=== PATIENT | male | born 1975 | race Caucasian/White ===

== ENCOUNTER 2023-01-10 17:28 | Emergency (ER) | payer BC, SELFPAY ==
[2023-01-10 17:40] VITALS: BP 112/86; PULSE 76; RESP 18; TEMP 37; O2SAT 98; BMI 35.6
--- NOTE | 2023-01-10 18:00 | EXP.UTC ---
Discharge Plan Disposition Patient Disposition: Home, Self-Care Condition: Good Prescriptions Prescriptions: New methylprednisolone [Medrol (Guido)] 4 mg tablets,dose pack See Rx Instructions .Route .COMPLEX 6 Days Qty: 21 0RF Rx Instructions: taper pack; amoxicillin-pot clavulanate 875-125 mg Tablet 1 tab PO Q12H Qty: 20 0RF No Action lisinopril 20 mg tablet 20 mg PO DAILY Label Comments: TAKE 1 TABLET BY MOUTH EVERY DAY Aimovig Autoinjector 70 mg/mL auto-injector 70 mg SQ MONTHLY Label Comments: SUBCUTANEOUS (INJECT UNDER THE SKIN) 70 MG EVERY 30 DAYS. Nurtec ODT 75 mg tablet,disintegrating 75 mg PO DAILY Label Comments: TAKE 1 TABLET BY MOUTH DAILY NEEDED (MIGRAINE). Referrals Follow up/Referrals: Provider,Referral, MD [Primary Care Provider] - See instructions Activity Restrictions/Add. Instructions Additional Instructions/Restrictions: Take medication as prescribed Follow up with your Family Doctor if no improvement or any worsening of symptoms Return if needed Warm drinks like Tea may help with scratchy throat Clinical Impressions Clinical Impression: Otitis media Qualifiers: Otitis media type: unspecified Laterality: right Qualified Code(s): H66.91 - Otitis media, unspecified, right ear Instructions Patient Instructions: Middle Ear Infection, DI for Sinusitis Discharge ED Provider: Katarina Wallace [facility] General Stated complaint: congestion, sore throat, cough Mode of Arrival: Ambulatory Source of Information: Patient and Spouse Limitations: No Limitations Time Seen by Provider: 01/10/23 18:00 Description of Symptoms (Recalled from Triage Doc. by RN): PATIENT C/O SINUS PRESSURE AND DRAINAGE X 4 DAYS HEENT Symptoms (Recalled from RN notes): Yes Resp Symptoms (Recalled from RN notes): No Skin Symptoms (Recalled from RN notes): No MS Symptoms (Recalled from RN notes): No Functional Status (Recalled from RN notes): WNL History of Present Illness Provider Complaint: Patient states that he has been having sinus pain and pressure along with pain in his right ear for about 4 days States that today he was feeling worse so he came in to get checked States that the pressure behind his eyes was 'making his head hurt Related Data Home Medications Medication Instructions Recorded Confirmed erenumab-aooe 70 mg/mL 70 mg SQ MONTHLY Headache 01/10/23 01/10/23 subcutaneous auto-injector (Aimovig Autoinjector) lisinopril 20 mg tablet 20 mg PO DAILY Hypertension 01/10/23 01/10/23 rimegepant 75 mg disintegrating 75 mg PO DAILY Headache 01/10/23 01/10/23 tablet (Nurtec ODT) Previous Rx's Medication Instructions Recorded amoxicillin 875 mg-potassium 1 tab PO Q12H #20 tabs 01/10/23 clavulanate 125 mg tablet methylprednisolone 4 mg tablets in See Rx Instructions .Route 01/10/23 a dose pack (Medrol (Guido)) .COMPLEX 6 days #21 tabs Allergies Allergy/AdvReac Type Severity Reaction Status Date / Time No Known Allergies Allergy Verified 01/10/23 17:54 Worker's Comp Is this a Worker's Comp case?: No [facility] Disclaimer: The information contained in this section may have been updated after the patient was seen, as this information can be updated by other users. Medical History (Updated 01/10/23 @ 18:17 by Katarina Wallace APRN) Hypertension Migraine Social History Smoking Status: Unknown if ever smoked alcohol intake: never current occupational status: employed Travel in the last 8 weeks: None ROS Obtained: Yes All systems reviewed & no additional complaints except as documented and Yes Systems reviewed as appropriate & no additional complaints except as documented ENT Ears, Nose, Mouth, and Throat: Reports system reviewed and no additional complaints, except as documented, Reports as per HPI, Reports otalgia, Reports sinus pain and Reports sinus pressure Cardiovascular Cardiovascular: Reports system reviewed a
[2023-01-10 18:18] VITALS: BP 112/86; PULSE 76; RESP 18; TEMP 37; O2SAT 98
== END 2023-01-10 18:21 | disposition home or self-care (01) ==
PROVIDERS: Emergency Provider Nurse Practitioner
DX: H66.91 Otitis media, unspecified, right ear (principal); J01.90 Acute sinusitis, unspecified; I10 Essential (primary) hypertension
CPT/HCPCS: 99204; 99212; G0463

== ENCOUNTER 2023-02-11 16:29 | Emergency (ER) | payer BC, SELFPAY ==
[2023-02-11 16:35] VITALS: BP 136/78; PULSE 76; RESP 19; TEMP 36.8; O2SAT 98; BMI 34.0
--- NOTE | 2023-02-11 16:52 | EXP.UTC ---
Discharge Plan Disposition Patient Disposition: Home, Self-Care Condition: Good Prescriptions Prescriptions: New Debrox 6.5 % drops 5 drp otic (ear) DAILY 5 Days Qty: 15 0RF No Action lisinopril 20 mg tablet 20 mg PO DAILY Patient Comments: TAKE 1 TABLET BY MOUTH EVERY DAY Aimovig Autoinjector 70 mg/mL auto-injector 70 mg SQ MONTHLY Patient Comments: SUBCUTANEOUS (INJECT UNDER THE SKIN) 70 MG EVERY 30 DAYS. Nurtec ODT 75 mg tablet,disintegrating 75 mg PO DAILY Patient Comments: TAKE 1 TABLET BY MOUTH DAILY NEEDED (MIGRAINE). methylprednisolone [Medrol (Guido)] 4 mg tablets,dose pack See Rx Instructions .Route .COMPLEX 6 Days Qty: 21 0RF Rx Instructions: taper pack; amoxicillin-pot clavulanate 875-125 mg Tablet 1 tab PO Q12H Qty: 20 0RF Referrals Follow up/Referrals: Provider,Referral, MD [Primary Care Provider] - See instructions Clinical Impressions Clinical Impression: Impacted cerumen of left ear Instructions Patient Instructions: Cerumen Impaction Discharge ED Provider: Esteban ([facility])[place] HPI General Stated complaint: left ear pain Mode of Arrival: Ambulatory Source of Information: Patient Limitations: No Limitations Time Seen by Provider: 02/11/23 16:52 Description of Symptoms (Recalled from Triage Doc. by RN): PATIENT C/O LEFT EAR PAIN SINCE YESTERDAY HEENT Symptoms (Recalled from RN notes): Yes Resp Symptoms (Recalled from RN notes): No Skin Symptoms (Recalled from RN notes): No MS Symptoms (Recalled from RN notes): No Functional Status (Recalled from RN notes): WNL History of Present Illness Provider Complaint: 47 yr old male presents for left ear pain since yesterday Related Data Home Medications Medication Instructions Recorded Confirmed erenumab-aooe 70 mg/mL 70 mg SQ MONTHLY Headache 01/10/23 01/10/23 subcutaneous auto-injector (Aimovig Autoinjector) lisinopril 20 mg tablet 20 mg PO DAILY Hypertension 01/10/23 01/10/23 rimegepant 75 mg disintegrating 75 mg PO DAILY Headache 01/10/23 01/10/23 tablet (Nurtec ODT) Previous Rx's Medication Instructions Recorded amoxicillin 875 mg-potassium 1 tab PO Q12H #20 tabs 01/10/23 clavulanate 125 mg tablet methylprednisolone 4 mg tablets in See Rx Instructions .Route 01/10/23 a dose pack (Medrol (Guido)) .COMPLEX 6 days #21 tabs carbamide peroxide 6.5 % ear drops 5 drp otic (ear) DAILY 5 days #15 02/11/23 (Debrox) mL Allergies Allergy/AdvReac Type Severity Reaction Status Date / Time No Known Allergies Allergy Verified 01/10/23 17:54 Worker's Comp Is this a Worker's Comp case?: No [facility] Disclaimer: The information contained in this section may have been updated after the patient was seen, as this information can be updated by other users. Medical History , [employer]) Hypertension Migraine Social History (Updated 01/10/23 @ 18:17 by Katarina Wallace, [employer]) Smoking Status: Unknown if ever smoked alcohol intake: never current occupational status: employed Travel in the last 8 weeks: None ROS Obtained: Yes All systems reviewed & no additional complaints except as documented Constitutional Constitutional: Reports system reviewed and no additional complaints, except as documented and Reports as per HPI Eyes Eyes: Reports system reviewed and no additional complaints, except as documented ENT Ears, Nose, Mouth, and Throat: Reports system reviewed and no additional complaints, except as documented, Reports as per HPI and Reports otalgia Cardiovascular Cardiovascular: Reports system reviewed and no additional complaints, except as documented Respiratory Respiratory: Reports system reviewed and no additional complaints, except as documented Musculoskeletal Musculoskeletal: Reports system reviewed and no additional complaints, except as documented Neurologic Neurologic: Reports system revi
[2023-02-11 17:18] VITALS: BP 136/78; PULSE 76; RESP 19; TEMP 36.8; O2SAT 98
== END 2023-02-11 17:20 | disposition home or self-care (01) ==
PROVIDERS: Emergency Provider Nurse Practitioner Family
DX: H61.22 Impacted cerumen, left ear (principal); I10 Essential (primary) hypertension; H92.02 Otalgia, left ear
CPT/HCPCS: 99212; 99213; G0463

== ENCOUNTER → 2023-02-20 15:54 | Outpatient (CLI) | payer BC, SELFPAY | PROVIDERS: PCP Student in an Organized Health Care Education/Training Program; Visit Provider Student in an Organized Health Care Education/Training Program | DX: N39.0 Urinary tract infection, site not specified (principal) | CPT/HCPCS: 87086 ==

== ENCOUNTER 2023-07-25 17:23 | Emergency (ER) | payer BC, SELFPAY ==
[2023-07-25 18:20] VITALS: BP 132/82; PULSE 124; RESP 18; TEMP 36.8; O2SAT 96; BMI 36.9
--- NOTE | 2023-07-25 19:12 | EXP.UTC ---
Discharge Plan Disposition Patient Disposition: Home, Self-Care Condition: Good Prescriptions Prescriptions: New loratadine 10 mg tablet 10 mg PO DAILY Qty: 30 0RF benzonatate 100 mg capsule 100 mg PO TID PRN (Reason: cough) Qty: 30 0RF No Action lisinopril 20 mg tablet 20 mg PO DAILY Patient Comments: TAKE 1 TABLET BY MOUTH EVERY DAY Aimovig Autoinjector 70 mg/mL auto-injector 70 mg SQ MONTHLY Patient Comments: SUBCUTANEOUS (INJECT UNDER THE SKIN) 70 MG EVERY 30 DAYS. Nurtec ODT 75 mg tablet,disintegrating 75 mg PO DAILY Patient Comments: TAKE 1 TABLET BY MOUTH DAILY NEEDED (MIGRAINE). montelukast 10 mg tablet 10 mg PO DAILY Patient Comments: TAKE 1 TABLET BY MOUTH EVERY DAY AT NIGHT albuterol sulfate 90 mcg/actuation HFA aerosol inhaler See Rx Instructions .ROUTE .COMPLEX Patient Comments: INHALE 2 PUFFS BY MOUTH EVERY 4 HOURS NEEDED FOR WHEEZE OR FOR SHORTNESS OF BREATH Rx Instructions: INHALE 2 PUFFS BY MOUTH EVERY 4 HOURS NEEDED FOR WHEEZE OR FOR SHORTNESS OF BREATH Referrals Follow up/Referrals: Marta Jo PA [Primary Care Provider] - See instructions Clinical Impressions Clinical Impression: Acute upper respiratory infection Instructions Patient Instructions: DI for Viral Upper Respiratory Infection -- Adult Discharge ED Provider: Karuna Domínguez [facility] General Stated complaint: cough, parish, fever Mode of Arrival: Ambulatory Source of Information: Patient Limitations: No Limitations Time Seen by Provider: 07/25/23 19:11 Description of Symptoms (Recalled from Triage Doc. by RN): cough, congestion, and fever HEENT Symptoms (Recalled from RN notes): Yes Resp Symptoms (Recalled from RN notes): No Skin Symptoms (Recalled from RN notes): No MS Symptoms (Recalled from RN notes): No Functional Status (Recalled from RN notes): n/a History of Present Illness Provider Complaint: Pt relates that he has had clear sinus drainage, cough, and a low grade fever for 2 days. He relates that he has used his inhaler twice today and taken DayQuil. He denies sick contact. Related Data Home Medications Medication Instructions Recorded Confirmed erenumab-aooe 70 mg/mL 70 mg SQ MONTHLY Headache 01/10/23 02/20/23 subcutaneous auto-injector (Aimovig Autoinjector) lisinopril 20 mg tablet 20 mg PO DAILY Hypertension 01/10/23 07/25/23 rimegepant 75 mg disintegrating 75 mg PO DAILY Headache 01/10/23 02/20/23 tablet (Nurtec ODT) albuterol sulfate 90 mcg/actuation See Rx Instructions .Route .COMPLEX 07/25/23 07/25/23 aerosol inhaler montelukast 10 mg tablet 10 mg PO DAILY 07/25/23 07/25/23 Previous Rx's Medication Instructions Recorded benzonatate 100 mg capsule 100 mg PO TID PRN cough #30 caps 07/25/23 loratadine 10 mg tablet 10 mg PO DAILY #30 tabs 07/25/23 Allergies Allergy/AdvReac Type Severity Reaction Status Date / Time No Known Allergies Allergy Verified 07/25/23 18:34 Worker's Comp Is this a Worker's Comp case?: No [facility] Disclaimer: The information contained in this section may have been updated after the patient was seen, as this information can be updated by other users. Medical History Hypertension Migraine Social History Smoking Status: Never smoker alcohol intake: never substance use type: denies use current occupational status: employed Travel in the last 8 weeks: None household members: family lives independently: Yes marital status: ROS Obtained: Yes All systems reviewed & no additional complaints except as documented Constitutional Constitutional: Reports system reviewed and no additional complaints, except as documented, Reports fever(s) and Reports malaise Eyes Eyes: Reports system reviewed and no additional complaints, except as docume
[2023-07-25 19:35] VITALS: BP 132/82; PULSE 124; RESP 18; TEMP 36.8; O2SAT 96
== END 2023-07-25 19:35 | disposition home or self-care (01) ==
PROVIDERS: Emergency Provider Nurse Practitioner Family; PCP Student in an Organized Health Care Education/Training Program
DX: R05.9 Cough, unspecified (principal); R50.9 Fever, unspecified; J06.9 Acute upper respiratory infection, unspecified; R09.81 Nasal congestion; R07.0 Pain in throat; R53.81 Other malaise; B34.9 Viral infection, unspecified; I10 Essential (primary) hypertension
CPT/HCPCS: 99212; 99214; G0463